=== PATIENT | female | born 1995 | race Caucasian/White ===

== ENCOUNTER 2017-02-11 20:59 | Emergency (ER) | payer OTHER ==
[~2017-02-11] VITALS: Ht 160 cm; Wt 125.0 kg
[2017-02-11 21:06] VITALS: BP 109/73; PULSE 94; RESP 28; O2SAT 94
[2017-02-11] MEDS ORDERED: Albuterol 2.5 mg/3 mL Inhalation Solution NEB ONE ×2 (21:15→21:20)
--- NOTE | 2017-02-11 21:17 | ED.REPORT ---
HPI-Dyspnea / Wheezing Date of Service Feb 11, 2017 ED Provider: Constantine Garcia DO Pt is a 21 year old female with a history of moderate-severe asthma who presents to the ED complaining with an asthma attack onset 3-4 days ago that worsened today. Additional symptoms include chest tightness onset yesterday that has resolved, cough, left ear pain onset yesterday, and painful lymph nodes in neck. She denies fever or dysuria. Nursing Notes Stated Complaint: ASTHMA ATTACK Chief Complaint: Respiratory Distress Nursing Notes Reviewed: Yes Allergies: Coded Allergies: No Known Allergies (Unverified , 02/11/17) Scheduled Albuterol HFA (Proair HFA) 8.5 Gm Hfa.aer.ad 2 PUFFS INHALATION Q4H Prednisone (PredniSONE) 20 Mg Tablet 40 MG PO DAILY General Time Seen by MD: 21:16 Chief Complaint Asthma attack Hx Obtained From: Patient Arrived By: Walk-in Sudden in Onset?: No Onset Occurred: 3 days ago Context of Onset: Asthma attack Symptom Duration: Constant Quality: Painful Severity: Current: Moderate Severity: Maximum: Severe Recent Healthcare: No recent doctor visit, No recent hospitalization Similar Sx Previous: No Past Medical History Past Medical History Notes: Lives in [place], [place] Past Medical History 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 Female: Denies: Dysuria Physical Exam Initial Vital Signs Vital Signs (First) Date Time Temp Pulse Resp B/P Pulse Ox O2 Delivery O2 Flow Rate FiO2 02/11/17 21:06 36.2 94 28 109/73 94 Room Air Initial VS: Reviewed Head / Eyes: Atraumatic, Normocephalic Extremities: Vascular intact, Neuro intact, No swelling, No tenderness Skin: Warm, Dry, No cyanosis Neurologic: Alert, Oriented, Nonfocal Psychiatric: Mood/affect normal, Behavior normal, Normal thought content General/Constitutional: Awake, Alert Neck: Supple, Full range of motion Cervical lympadenopathy in anterior cervical chain bilaterally with tenderness to palpation Respiratory / Chest: Atraumatic, No respiratory distress Diffuse wheezing Mildly tachypnic Prolonged expiration Cardiovascular: Heart rate NL, Regular rhythm, Heart sounds NL ENT: Atraumatic, Airway patent, Mucous membranes moist, Tympanic membs NL Interpretation & Diagnostics Lab Results Interpretation Result Diagram: 02/11/17214202/11/172142 Test 02/11/17 21:43 White Blood Count 7.2th/mm3 (3.8-10.1) Red Blood Count 4.86mil/mm3 (3.90-5.20) Hemoglobin 14.4g/dL (12.0-15.6) Hematocrit 40.8% (35.0-46.0) Mean Corpuscular Volume 84.0fL (81-100) Mean Corpuscular Hemoglobin 29.6pg (27.0-35.0) Mean Corpuscular Hemoglobin Concent 35.3% (32.0-37.0) Red Cell Distribution Width 12.7% (12.3-15.4) Platelet Count 175bil/L (150-400) Neutrophils (%) (Auto) 34.1% (40-74) Lymphocytes (%) (Auto) 46.6% (14-46) Monocytes (%) (Auto) 6.9% (4-12) Eosinophils (%) (Auto) 11.2% (0-5) Basophils (%) (Auto) 0.6% (0-3) Sodium Level 138mEq/L (134-144) Potassium Level 3.8mEq/L (3.5-5.2) Chloride Level 101mEq/L (97-108) Carbon Dioxide Level 20mmol/L (18-29) Blood Urea Nitrogen 14mg/dL (6-20) Creatinine 0.77mg/dL (0.57-1.00) Estimat Glomerular Filtration Rate 137mL/min (>59) Glucose Level 88mg/dL (60-99) Calcium Level 9.4mg/dL (8.5-10.1) Total Bilirubin 0.2mg/dL (0.0-1.2) Aspartate Amino Transf (AST/SGOT) 31U/L (0-50) Alanine Aminotransferase (ALT/SGPT) 16U/L (0-32) Alkaline Phosphatase 69U/L (25-150) Troponin T 0.010ug/L (0.0-0.011) Pro-B-Type Natriuretic Peptide 22.41pg/mL (0-130) Total Protein 7.8g/dL (6.4-8.4) Albumin 4.2g/dL (3.4-5.0) Procalcitonin 0.03ng/mL (0.00-0.08) X-Ray Chest Interpretation Chest Xray Interpretation: IMPRESSION: No radiographic evidence of acute cardiopulmonary pathology. Dictated by: Bert Silva M.D. on 02/11/2017 at 22:05 Approved by: Bert Silva M.D. on 02/11/2017 at 22:05 View: Portable, 1 view Interpretation / Wet Read by: Interpret - Radiologist Re-Eval/Medical Decision Med Decision/Clinical Course 21-year-old female with a history of asthma, not on inhaled corticosteroids due to headaches, presents with wheezing, chest tightness, and cough. Her x-ray is negative and her pro-calcitonin is negative. She does have anterior cervical lymphadenopathy, but no pharyngitis or otitis media noted on exam. Most likely etiology for her asthma exacerbation is a viral infection which I discussed with her. Symptoms improved with albuterol and methylprednisolone here. Patient discharged with 5 days of prednisone 40 mg, and she has plenty of nebulizers at home. She was not hypoxic here. She will follow-up with her PCP , return if worsening Source of Hx: Old records Re-Evaluation/Progress : Time of Eval: 23:07 Patient Status: Condition improved Re-Evaluation/Progress Note: Patient rechecked. Discussed plan for discharge. Patient understands and agrees with plan. F/U instructions and RTER warnings given. All questions addressed at this time. Counseled Regarding: Diagnosis, Lab results, Need for follow-up, When/why to return to ED Discharge & Departure Impression: Primary Impression: Asthma exacerbation Additional Impression: Lymphadenopathy, cervical Disposition: Home Discharge Condition All VS Reviewed: Yes Condition: Stable Patient Instructions: Asthma (ED) Additional Instructions: Thank you for entrusting us with your medical care today. Your emergency department evaluation today including examination, lab work, and chest X-ray are reassuring. There was no evidence of a bacterial infection seen today, but that does not rule out a viral infection. Keep up your breathing treatments. You can take steroids to help with your breathing. These may take up to 24 hours to take effect. You were given IV Solu -Medrol here in the ER today. Please call your primary care physician tomorrow in order to schedule a follow- up appointment for a recheck. Please return to the emergency department for any new or worsening conditions including any difficulty breathing, fevers, chills, nausea, vomiting, chest pain , lightheadedness, or weakness. Scribe Attestation Portions of this note were transcribed by Delilah Varghese. I, Dr. Garcia, personally performed the history, physical exam and medical decision-making; I reviewed and confirmed the accuracy of the information in the transcribed note. Constantine Garcia DO Feb 11, 2017 21:17 Delilah Varghese Feb 11, 2017 21:28
[2017-02-11] MEDS ORDERED: MethylprednisoLONE Sodium Succinate 62.5 mg/mL 2 mL Inj IVPUSH ONE (21:20)
[2017-02-11] MEDS ORDERED: Magnesium Sulf 2 Gm/50mL Water 2 GM in IV Premix 1 EACH IV ONE (21:20)
[2017-02-11 21:21] VITALS: PULSE 107; RESP 20; O2SAT 94
[2017-02-11 21:49] LABS: BASOPHILS % (AUTO) 0.6 % (0-3); EOSINOPHILS % (AUTO) 11.2 % (0-5); MONOCYTES % (AUTO) 6.9 % (4-12); Mean Corpuscular Hemoglobin 29.6 pg (27.0-35.0); NEUTROPHILS % (AUTO) 34.1 % (40-74); Platelet Count 175 bil/L (150-400)
--- NOTE | 2017-02-11 22:07 | DRSVH ---
PROCEDURE: X-RAY CHEST ONE VIEW, PORTABLE ([id number]) INDICATIONS: short of breath, wheezing TECHNIQUE: One view of the chest was acquired. COMPARISON: None. FINDINGS: Surgical changes and devices: None. Lungs and pleura: No pleural effusions or pneumothorax. Lungs are clear. Mediastinum: Mediastinal contours appear normal. Heart size is normal. Bones and chest wall: No suspicious bony lesions. Overlying soft tissues appear unremarkable. IMPRESSION: No radiographic evidence of acute cardiopulmonary pathology. Dictated by: Bert Silva M.D. on 02/11/2017 at 22:05 Approved by: Bert Silva M.D. on 02/11/2017 at 22:05
[2017-02-11 22:15] LABS: TROPONIN T 0.01 ug/L (0.0-0.011)
[2017-02-11 22:59] VITALS: BP 103/52; PULSE 107; RESP 20; O2SAT 97
[2017-02-11] MEDS ORDERED: PRE20 PO (23:27)
[2017-02-11] MEDS ORDERED: ALBU8.5H2 INHALATION (23:52)
[2017-02-11 23:53] VITALS: BP 105/50; PULSE 92; RESP 20; O2SAT 97
== END 2017-02-11 23:53 | disposition home or self-care (01) ==
LOC: SED 20:59
DX: J44.1 Chronic obstructive pulmonary disease with (acute) exacerbation (principal); R59.1 Generalized enlarged lymph nodes; H92.02 Otalgia, left ear; R59.0 Localized enlarged lymph nodes; Z86.14 Personal history of Methicillin resistant Staphylococcus aureus infection
CPT/HCPCS: 36415; 71010; 80053; 83880; 84145; 84484; 85025; 94644; 96365; 96366; 96375; 99285; J2930; J7613